=== PATIENT | female | born 1950 | race Two or more races ===

== ENCOUNTER 2022-04-02 19:30 | Inpatient (IN) | payer OTHER ==
[~2022-04-02] VITALS: Ht 170.2 cm; Wt 149.0 kg
[2022-04-02 22:12] LABS: Eosinophils # (auto) 0.3 10 ^3/uL (0-0.8); Lymphocytes # (auto) 1.5 10 ^3/uL (0.4-5.4); Lymphocytes % (auto) 14.8 % (10.0-50.0); Mean Corpuscular Hgb Conc. 30.3 g/dL (32.0-36.0); Monocytes # (auto) 0.9 10 ^3/uL (0-1.3); Nucleated Red Blood Cells % 0.1 %; Red Blood Cells 3.22 10^6/uL (4.0-5.20)
[2022-04-02 22:14] LABS: Basophils # (auto) 0 10 ^3/uL (0-0.2); Basophils % (auto) 0.5 % (0.0-2.0); Eosinophils % (auto) 3.2 % (0.0-7.0); Hematocrit 22.5 % (36.0-46.0); Mean Corpuscular Hemoglobin 21.2 pg (28.0-32.0); Mean Corpuscular Volume 69.8 fL (80.0-100.0); Monocytes % (auto) 9.5 % (0.0-12.0); Neutrophils # (auto) 7.2 10 ^3/uL (1.6-8.6); Red Cell Distribution Width 20.2 % (11.8-14.3); White Blood Cell 9.9 10^3/uL (4.4-10.8)
[2022-04-02 22:15] LABS: Albumin 2.7 g/dL (3.4-5.0); BUN/Creatinine Ratio 27.9; Potassium 4.7 mmol/L (3.5-5.1)
[2022-04-02 22:22] LABS: Bilirubin, Total 0.5 mg/dL (0.2-1.0); Total Protein 6.7 g/dL (6.4-8.2)
[2022-04-02 22:33] LABS: Hemoglobin 6.8 g/dL (12.2-16.2)
[2022-04-02] MEDS ORDERED: IOHEXOL 300 MG/ML 100ML BOTTLE IJ ONE (22:42)
[2022-04-03] VITALS (8 sets, daily range): BP systolic 101–121; BP diastolic 39–70
[2022-04-03 01:20] LABS: Urine Bacteria MANY /hpf (None Seen); Urine Blood Negative /uL (Negative); Urine Mucus FEW (None Seen); Urine Specific Gravity 1.026 (1.001-1.035); Urine WBC 7 /hpf (0 - 5); Urine WBC Clumps PRESENT /hpf (None Seen)
[2022-04-03] MEDS ORDERED: ONDANSETRON HCL 4 MG/2 ML VIAL IV PRN (05:45)
[2022-04-03] MEDS ORDERED: NITROGLYCERIN 0.4 MG SL TAB SL PRN (05:45)
[2022-04-03] MEDS ORDERED: DEXTROSE (50%) 50ML SYRG IV PRN (05:45)
[2022-04-03] MEDS ORDERED: ACETAMINOPHEN 325 MG TAB PO PRN (05:45)
[2022-04-03] MEDS ORDERED: MORPHINE SULFATE INJ 2 MG/ml SYRG IV PRN (05:45)
[2022-04-03] MEDS: FUROSEMIDE 40 MG TAB PO SCH ×2 (06:17→17:23)
[2022-04-03] MEDS: InsuLIN REG 1unit/0.01ml Soln (100units/ml) SC SCH ×4 (07:00→22:00)
[2022-04-03] MEDS: ACCU-CHEK COMFORT CURVE STRIP VI SCH ×4 (07:07→22:01)
[2022-04-03] MEDS: cefTRIAXone 1GM/50ML D5W 50 ML IV SCH (09:13)
[2022-04-03] MEDS ORDERED: AZITHROMYCIN 500MG/ 250ML 250 ML IV SCH (10:00)
[2022-04-03] MEDS: CARVEDILOL 3.125 MG TAB PO SCH ×2 (10:00→22:13)
[2022-04-03] MEDS: LOSARTAN POTASSIUM 25 MG TAB PO SCH (10:00)
[2022-04-03] MEDS: PANTOPRAZOLE 40 MG TAB PO SCH (10:45)
[2022-04-03 17:14] LABS: Basophils # (auto) 0 10 ^3/uL (0-0.2); Eosinophils # (auto) 0.2 10 ^3/uL (0-0.8); Eosinophils % (auto) 2.6 % (0.0-7.0); Monocytes # (auto) 0.8 10 ^3/uL (0-1.3); Neutrophils # (auto) 5.8 10 ^3/uL (1.6-8.6); White Blood Cell 7.9 10^3/uL (4.4-10.8)
[2022-04-03 17:16] LABS: Basophils % (auto) 0.6 % (0.0-2.0); Hematocrit 24.5 % (36.0-46.0); Hemoglobin 7.3 g/dL (12.2-16.2); Lymphocytes % (auto) 12.9 % (10.0-50.0); Mean Corpuscular Hemoglobin 21.3 pg (28.0-32.0); Mean Corpuscular Hgb Conc. 29.8 g/dL (32.0-36.0); Mean Corpuscular Volume 71.6 fL (80.0-100.0); Monocytes % (auto) 10.4 % (0.0-12.0); Neutrophils % (auto) 73.5 % (37.0-80.0); Red Blood Cells 3.42 10^6/uL (4.0-5.20)
[2022-04-03 17:18] LABS: Red Cell Distribution Width 20.8 % (11.8-14.3)
[2022-04-04 05:00] VITALS: BP 105/48
[2022-04-04] MEDS: ACCU-CHEK COMFORT CURVE STRIP VI SCH ×2 (05:50→11:49)
[2022-04-04] MEDS: FUROSEMIDE 40 MG TAB PO SCH (05:51)
[2022-04-04] MEDS: InsuLIN REG 1unit/0.01ml Soln (100units/ml) SC SCH ×2 (05:58→11:30)
[2022-04-04 06:58] LABS: Lymphocytes # (auto) 0.9 10 ^3/uL (0.4-5.4)
[2022-04-04 07:02] LABS: Basophils # (auto) 0 10 ^3/uL (0-0.2); Basophils % (auto) 0.6 % (0.0-2.0); Eosinophils # (auto) 0.4 10 ^3/uL (0-0.8); Hematocrit 24.5 % (36.0-46.0); Hemoglobin 7.4 g/dL (12.2-16.2); Lymphocytes % (auto) 12.3 % (10.0-50.0); Mean Corpuscular Hemoglobin 21.6 pg (28.0-32.0); Mean Corpuscular Hgb Conc. 30.1 g/dL (32.0-36.0); Mean Corpuscular Volume 71.9 fL (80.0-100.0); Monocytes # (auto) 0.7 10 ^3/uL (0-1.3); Neutrophils # (auto) 5.2 10 ^3/uL (1.6-8.6); Neutrophils % (auto) 72.1 % (37.0-80.0); White Blood Cell 7.2 10^3/uL (4.4-10.8)
[2022-04-04 07:03] LABS: Red Cell Distribution Width 20.5 % (11.8-14.3)
[2022-04-04 07:13] LABS: Albumin 2.5 g/dL (3.4-5.0); Calcium 9.2 mg/dL (8.5-10.1); Potassium 4.1 mmol/L (3.5-5.1)
[2022-04-04 07:16] LABS: BUN/Creatinine Ratio 25.6; Bilirubin, Total 0.4 mg/dL (0.2-1.0); Total Protein 6.3 g/dL (6.4-8.2)
[2022-04-04 09:00] VITALS: BP 105/45
[2022-04-04] MEDS: LOSARTAN POTASSIUM 25 MG TAB PO SCH (10:00)
[2022-04-04] MEDS: cefTRIAXone 1GM/50ML D5W 50 ML IV SCH (10:32)
[2022-04-04] MEDS: CARVEDILOL 3.125 MG TAB PO SCH (10:35)
[2022-04-04] MEDS: PANTOPRAZOLE 40 MG TAB PO SCH (10:36)
[2022-04-04 13:00] VITALS: BP 102/41
[2022-04-04] MEDS ORDERED: PANT40T PO (13:07)
[2022-04-04] MEDS ORDERED: LEVO750T8 PO (13:07)
[2022-04-04 16:00] VITALS: BP 114/54
[2022-04-04 17:00] VITALS: BP 102/40
== END 2022-04-04 17:15 | disposition home or self-care (01) | DRG 811 ==
LOC: EDBD 19:30 → ER 19:30 → TELE 04-03 05:40 → TELE-WESTW 04-03 13:04
PROVIDERS: ADMIT Nurse Practitioner; ATTEND Internal Medicine Pulmonary Disease
PROC: 30233N1 Transfusion of Nonautologous Red Blood Cells into Peripheral Vein, Percutaneous Approach (ICD-10-PCS; principal; 2022-04-03)
DX: D62 Acute posthemorrhagic anemia (principal); E43 Unspecified severe protein-calorie malnutrition; J18.9 Pneumonia, unspecified organism; J90 Pleural effusion, not elsewhere classified; N39.0 Urinary tract infection, site not specified; J44.0 Chronic obstructive pulmonary disease with (acute) lower respiratory infection; J98.11 Atelectasis; Z68.43 Body mass index [BMI] 50.0-59.9, adult; Z20.822 Contact with and (suspected) exposure to COVID-19; K80.20 Calculus of gallbladder without cholecystitis without obstruction; R94.8 Abnormal results of function studies of other organs and systems; E11.9 Type 2 diabetes mellitus without complications; I11.0 Hypertensive heart disease with heart failure; I50.9 Heart failure, unspecified; K76.89 Other specified diseases of liver; N83.202 Unspecified ovarian cyst, left side; E66.01 Morbid (severe) obesity due to excess calories; Z93.1 Gastrostomy status
CPT/HCPCS: 36415; 71045; 74177; 80053; 81001; 82962; 83605; 83690; 83880; 84484; 85025; 86850; 86900; 86901; 86920; 93306; 96365; 96367; G0378; J0696; J1815

== ENCOUNTER 2022-04-13 01:03 | Inpatient (IN) | payer OTHER ==
[~2022-04-13] VITALS: Ht 170.2 cm; Wt 150.9 kg
[2022-04-13] VITALS (12 sets, daily range): BP systolic 122–161; BP diastolic 23–71
[~2022-04-13 01:03] MED LIST: LEVO750T8 PO; PANT40T PO
[2022-04-13] MEDS ORDERED: methylPREDNISolone SOD SUCC 125 MG/2 ML VL IV ONE (01:15)
[2022-04-13 01:36] LABS: Basophils # (auto) 0.1 10 ^3/uL (0-0.2); Basophils % (auto) 0.6 % (0.0-2.0); Eosinophils % (auto) 0.4 % (0.0-7.0); Hemoglobin 7.2 g/dL (12.2-16.2); Lymphocytes # (auto) 0.7 10 ^3/uL (0.4-5.4); Monocytes # (auto) 0.9 10 ^3/uL (0-1.3); Nucleated Red Blood Cells % 0.1 %
[2022-04-13 01:37] LABS: Eosinophils # (auto) 0.1 10 ^3/uL (0-0.8); Hematocrit 24.5 % (36.0-46.0); Lymphocytes % (auto) 5.6 % (10.0-50.0); Mean Corpuscular Hemoglobin 21.1 pg (28.0-32.0); Mean Corpuscular Hgb Conc. 29.3 g/dL (32.0-36.0); Monocytes % (auto) 7.4 % (0.0-12.0); Neutrophils # (auto) 10.7 10 ^3/uL (1.6-8.6); Red Blood Cells 3.41 10^6/uL (4.0-5.20); White Blood Cell 12.5 10^3/uL (4.4-10.8)
[2022-04-13 01:42] LABS: Red Cell Distribution Width 21.2 % (11.8-14.3)
[2022-04-13] MEDS ORDERED: ALBUTEROL SULF 2.5 MG/0.5ML(0.5%) NEB SOLN ONE ×2 (01:57→01:58)
[2022-04-13] MEDS ORDERED: IPRATROPIUM BROM 0.5 MG/2.5ML INH SOL ONE ×2 (01:57→01:58)
[2022-04-13] MEDS ORDERED: FUROSEMIDE 100 MG/10ML VIAL IV ONE (02:00)
[2022-04-13 02:22] LABS: Albumin 2.3 g/dL (3.4-5.0); Calcium 8.9 mg/dL (8.5-10.1); Potassium 4.6 mmol/L (3.5-5.1)
[2022-04-13 02:25] LABS: Bilirubin, Total 0.4 mg/dL (0.2-1.0); Total Protein 6.9 g/dL (6.4-8.2)
[2022-04-13 02:30] LABS: BUN/Creatinine Ratio 26.7
[2022-04-13] MEDS ORDERED: PANTOPRAZOLE 40 MG/10 ML VIAL INJ IV ONE (03:30)
[2022-04-13] MEDS ORDERED: FUROSEMIDE 20 MG/2 ML VIAL IV ONE (09:45)
[2022-04-13] MEDS ORDERED: IPRATROPIUM BROM 0.5 MG/2.5ML INH SOL NEB PRN (10:15)
[2022-04-13] MEDS ORDERED: AZITHROMYCIN 500MG/ 250ML 250 ML IV ONE (10:15)
[2022-04-13] MEDS ORDERED: cefTRIAXone 1GM/50ML D5W 50 ML IV ONE (10:15)
[2022-04-13] MEDS ORDERED: NITROGLYCERIN 0.4 MG SL TAB SL PRN (10:15)
[2022-04-13] MEDS ORDERED: MORPHINE SULFATE INJ 2 MG/ml SYRG IV PRN (10:15)
[2022-04-13] MEDS ORDERED: ALBUTEROL SULF 2.5 MG/0.5ML(0.5%) NEB SOLN NEB PRN (10:15)
[2022-04-13] MEDS ORDERED: metroNIDAZOLE 500MG/100ML 100 ML IV ONE (10:30)
[2022-04-13 10:57] LABS: Cholesterol 120 mg/dL (< 200)
[2022-04-13 11:00] LABS: HDL Cholesterol 47 mg/dL (40-59); LDL Cholesterol 74 mg/dL (< 100); Triglycerides 65 mg/dL (< 150)
[2022-04-13] MEDS ORDERED: hydrALAZINE HCL 20 MG/ML VL IV PRN (12:15)
[2022-04-13] MEDS: ALBUTEROL SULF 2.5 MG/0.5ML(0.5%) NEB SOLN NEB SCH ×2 (12:32→19:12)
[2022-04-13] MEDS: IPRATROPIUM BROM 0.5 MG/2.5ML INH SOL NEB SCH ×2 (12:32→19:12)
[2022-04-13] MEDS ORDERED: metroNIDAZOLE 500MG/100ML 100 ML IV SCH (14:00)
[2022-04-13] MEDS: methylPREDNISolone SOD SUCC 40 MG/ML VL IV SCH ×2 (14:09→22:12)
[2022-04-13 18:26] LABS: Hematocrit 27.8 % (36.0-46.0); Hemoglobin 8.6 g/dL (12.2-16.2)
[2022-04-13] MEDS: metroNIDAZOLE 500MG/100ML 100 ML IV SCH (19:01)
[2022-04-13] MEDS: PANTOPRAZOLE 40 MG/10 ML VIAL INJ IV SCH (22:11)
[2022-04-13] MEDS: NYSTATIN TOPICAL POWDER 15GM TOP SCH (22:12)
[2022-04-14] MEDS: metroNIDAZOLE 500MG/100ML 100 ML IV SCH ×3 (03:05→18:25)
[2022-04-14 04:12] LABS: Basophils # (auto) 0 10 ^3/uL (0-0.2); Basophils % (auto) 0.1 % (0.0-2.0); Eosinophils # (auto) 0 10 ^3/uL (0-0.8); Nucleated Red Blood Cells % 0.1 %; Red Blood Cells 3.79 10^6/uL (4.0-5.20)
[2022-04-14 04:16] LABS: Eosinophils % (auto) 0.1 % (0.0-7.0); Hematocrit 27.2 % (36.0-46.0); Hemoglobin 8.4 g/dL (12.2-16.2); Lymphocytes # (auto) 0.5 10 ^3/uL (0.4-5.4); Lymphocytes % (auto) 6.4 % (10.0-50.0); Mean Corpuscular Hemoglobin 22.3 pg (28.0-32.0); Mean Corpuscular Hgb Conc. 31.1 g/dL (32.0-36.0); Mean Corpuscular Volume 71.7 fL (80.0-100.0); Monocytes # (auto) 0.5 10 ^3/uL (0-1.3); Monocytes % (auto) 6.1 % (0.0-12.0); Neutrophils # (auto) 6.7 10 ^3/uL (1.6-8.6); Neutrophils % (auto) 87.3 % (37.0-80.0); White Blood Cell 7.7 10^3/uL (4.4-10.8)
[2022-04-14 04:18] LABS: Potassium 3.9 mmol/L (3.5-5.1)
[2022-04-14 04:29] LABS: Albumin 2.4 g/dL (3.4-5.0); BUN/Creatinine Ratio 35.5; Bilirubin, Total 0.5 mg/dL (0.2-1.0); Total Protein 6.3 g/dL (6.4-8.2)
[2022-04-14 04:39] VITALS: BP 124/57
[2022-04-14 05:22] LABS: Red Cell Distribution Width 23.2 % (11.8-14.3)
[2022-04-14] MEDS: methylPREDNISolone SOD SUCC 40 MG/ML VL IV SCH ×3 (05:58→21:04)
[2022-04-14] MEDS: IPRATROPIUM BROM 0.5 MG/2.5ML INH SOL NEB SCH ×3 (06:12→22:57)
[2022-04-14] MEDS: ALBUTEROL SULF 2.5 MG/0.5ML(0.5%) NEB SOLN NEB SCH ×3 (06:12→22:57)
[2022-04-14 08:00] VITALS: BP 147/71
[2022-04-14 08:12] VITALS: BP 105/39
[2022-04-14] MEDS: cefTRIAXone 1GM/50ML D5W 50 ML IV SCH (08:41)
[2022-04-14] MEDS: NYSTATIN TOPICAL POWDER 15GM TOP SCH ×2 (09:52→21:04)
[2022-04-14] MEDS: PANTOPRAZOLE 40 MG/10 ML VIAL INJ IV SCH ×2 (09:52→21:04)
[2022-04-14] MEDS ORDERED: AZITHROMYCIN 500MG/ 250ML 250 ML IV SCH (10:00)
[2022-04-14] MEDS ORDERED: MORPHINE SULFATE INJ 2 MG/ml SYRG IV PRN (11:30)
[2022-04-14] MEDS ORDERED: HYDROcodone-ACET 5/325MG TAB PO PRN (11:30)
[2022-04-14] MEDS ORDERED: FLUCONAZOLE 200MG/100ML 100 ML IV ONE (11:30)
[2022-04-14] MEDS ORDERED: DEXTROSE (50%) 50ML SYRG IV PRN (11:30)
[2022-04-14] MEDS ORDERED: FUROSEMIDE 40 MG TAB PO ONE (11:30)
[2022-04-14 11:51] VITALS: BP 121/68
[2022-04-14] MEDS: ACCU-CHEK COMFORT CURVE STRIP VI SCH ×3 (12:04→23:21)
[2022-04-14 12:08] LABS: Urine Bacteria NONE SEEN /hpf (None Seen); Urine Blood 3+ /uL (Negative); Urine Mucus FEW (None Seen); Urine Specific Gravity 1.016 (1.001-1.035); Urine WBC 10 /hpf (0 - 5)
[2022-04-14] MEDS: InsuLIN REG 1unit/0.01ml Soln (100units/ml) SC SCH ×3 (12:08→23:23)
[2022-04-14 12:11] LABS: Protein, Urine 53.4 mg/dL (0.0-11.9)
[2022-04-14 17:00] VITALS: BP 132/70
[2022-04-14 22:00] VITALS: BP 138/68
[2022-04-15] MEDS: metroNIDAZOLE 500MG/100ML 100 ML IV SCH ×3 (03:03→18:14)
[2022-04-15 05:00] VITALS: BP 148/72
[2022-04-15] MEDS: ACCU-CHEK COMFORT CURVE STRIP VI SCH ×3 (05:40→17:53)
[2022-04-15] MEDS: InsuLIN REG 1unit/0.01ml Soln (100units/ml) SC SCH ×3 (05:40→18:03)
[2022-04-15] MEDS: methylPREDNISolone SOD SUCC 40 MG/ML VL IV SCH ×3 (05:43→21:29)
[2022-04-15] MEDS: IPRATROPIUM BROM 0.5 MG/2.5ML INH SOL NEB SCH ×3 (07:10→18:39)
[2022-04-15] MEDS: ALBUTEROL SULF 2.5 MG/0.5ML(0.5%) NEB SOLN NEB SCH ×3 (07:10→18:39)
[2022-04-15 07:50] LABS: Basophils # (auto) 0 10 ^3/uL (0-0.2); Basophils % (auto) 0.2 % (0.0-2.0); Eosinophils # (auto) 0 10 ^3/uL (0-0.8); Hemoglobin 9.2 g/dL (12.2-16.2); Lymphocytes # (auto) 0.4 10 ^3/uL (0.4-5.4); Lymphocytes % (auto) 5.3 % (10.0-50.0); Monocytes # (auto) 0.5 10 ^3/uL (0-1.3); Nucleated Red Blood Cells % 0.1 %
[2022-04-15 07:52] LABS: Eosinophils % (auto) 0.1 % (0.0-7.0); Hematocrit 30.6 % (36.0-46.0); Mean Corpuscular Volume 73.4 fL (80.0-100.0); Monocytes % (auto) 6.3 % (0.0-12.0); Neutrophils # (auto) 6.9 10 ^3/uL (1.6-8.6); Neutrophils % (auto) 88.1 % (37.0-80.0); Red Blood Cells 4.17 10^6/uL (4.0-5.20); White Blood Cell 7.8 10^3/uL (4.4-10.8)
[2022-04-15 07:57] LABS: Anion Gap 4 (5-15); BUN/Creatinine Ratio 39.3; Blood Urea Nitrogen 42 mg/dL (7-18); Chloride 94 mmol/L (98-107); GFR African American 65 mL/min; GFR Non-African American 53 mL/min; Glucose 147 mg/dL (74-106); Phosphorus 4.1 mg/dL (2.5-4.90); Potassium 3.9 mmol/L (3.5-5.1); Sodium 139 mmol/L (136-145)
[2022-04-15 08:00] VITALS: BP 121/68
[2022-04-15 08:01] LABS: Red Cell Distribution Width 23.7 % (11.8-14.3)
[2022-04-15 08:20] VITALS: BP 145/69
[2022-04-15 08:26] LABS: Carbon Dioxide 41 mmol/L (21-32); Uric Acid > 15.0 mg/dL (2.6-6.0)
[2022-04-15] MEDS: PANTOPRAZOLE 40 MG/10 ML VIAL INJ IV SCH ×2 (09:44→21:29)
[2022-04-15] MEDS: cefTRIAXone 1GM/50ML D5W 50 ML IV SCH (09:44)
[2022-04-15] MEDS: NYSTATIN TOPICAL POWDER 15GM TOP SCH ×2 (09:45→21:29)
[2022-04-15] MEDS: FLUCONAZOLE 200MG/100ML 100 ML IV SCH (09:45)
[2022-04-15] MEDS: FUROSEMIDE 40 MG TAB PO SCH (09:45)
[2022-04-15 12:20] VITALS: BP 114/62
[2022-04-15 16:20] VITALS: BP 128/52
[2022-04-15 18:33] LABS: Hemoglobin 8.8 g/dL (12.2-16.2)
[2022-04-15 18:34] LABS: Hematocrit 28.3 % (36.0-46.0)
[2022-04-15 22:00] VITALS: BP 125/48
[2022-04-16] MEDS: metroNIDAZOLE 500MG/100ML 100 ML IV SCH ×3 (02:15→20:53)
[2022-04-16 05:00] VITALS: BP 139/76
[2022-04-16] MEDS: ACCU-CHEK COMFORT CURVE STRIP VI SCH ×5 (05:26→23:11)
[2022-04-16] MEDS: InsuLIN REG 1unit/0.01ml Soln (100units/ml) SC SCH ×5 (05:26→23:25)
[2022-04-16] MEDS: methylPREDNISolone SOD SUCC 40 MG/ML VL IV SCH ×3 (05:27→21:16)
[2022-04-16] MEDS: IPRATROPIUM BROM 0.5 MG/2.5ML INH SOL NEB SCH ×3 (06:59→19:11)
[2022-04-16] MEDS: ALBUTEROL SULF 2.5 MG/0.5ML(0.5%) NEB SOLN NEB SCH ×3 (06:59→19:11)
[2022-04-16] MEDS: cefTRIAXone 1GM/50ML D5W 50 ML IV SCH (07:56)
[2022-04-16] MEDS: PANTOPRAZOLE 40 MG/10 ML VIAL INJ IV SCH ×2 (07:56→21:16)
[2022-04-16 09:00] VITALS: BP 118/88
[2022-04-16] MEDS ORDERED: FLUMAZENIL 0.1 MG/ML INJ 10ML MDV IV ONE (09:38)
[2022-04-16] MEDS ORDERED: NALOXONE HCL 0.4 MG/ML VIAL ONE (09:38)
[2022-04-16] MEDS ORDERED: MIDAZOLAM HCL 5 MG/ML-1ML VIAL ONE (09:39)
[2022-04-16] MEDS ORDERED: diphenhdrAMINE HCL 50 MG/1 ML VL ONE (09:39)
[2022-04-16] MEDS ORDERED: SODIUM CHLORIDE LOCK 0 ML ONE (09:39)
[2022-04-16] MEDS ORDERED: LIDOCAINE VISCOUS 2% 15ML UD ONE (09:39)
[2022-04-16] MEDS ORDERED: fentaNYL CITRATE 100 MCG/2 ML VL ONE (09:39)
[2022-04-16 09:47] LABS: Eosinophils # (auto) 0 10 ^3/uL (0-0.8); Lymphocytes # (auto) 0.3 10 ^3/uL (0.4-5.4); Neutrophils # (auto) 5.5 10 ^3/uL (1.6-8.6)
[2022-04-16 09:49] LABS: Basophils # (auto) 0.1 10 ^3/uL (0-0.2); Basophils % (auto) 0.9 % (0.0-2.0); Hematocrit 30.3 % (36.0-46.0); Hemoglobin 9.2 g/dL (12.2-16.2); Lymphocytes % (auto) 4.1 % (10.0-50.0); Mean Corpuscular Hgb Conc. 30.4 g/dL (32.0-36.0); Mean Corpuscular Volume 72.5 fL (80.0-100.0); Monocytes # (auto) 0.4 10 ^3/uL (0-1.3); Monocytes % (auto) 6.4 % (0.0-12.0); Neutrophils % (auto) 88.6 % (37.0-80.0); Nucleated Red Blood Cells % 0.1 %; Red Blood Cells 4.18 10^6/uL (4.0-5.20); White Blood Cell 6.2 10^3/uL (4.4-10.8)
[2022-04-16 09:52] LABS: Red Cell Distribution Width 23.2 % (11.8-14.3)
[2022-04-16 09:58] LABS: Albumin 2.5 g/dL (3.4-5.0); Calcium 9.2 mg/dL (8.5-10.1); Potassium 4.1 mmol/L (3.5-5.1)
[2022-04-16 10:00] LABS: INR 1.17 (0.9-1.15); Partial Thromboplastin Time 30.2 sec (24.6-33.4)
[2022-04-16 10:02] LABS: BUN/Creatinine Ratio 42.2; Bilirubin, Total 0.4 mg/dL (0.2-1.0); Total Protein 6.1 g/dL (6.4-8.2)
[2022-04-16] MEDS: FLUCONAZOLE 200MG/100ML 100 ML IV SCH (10:33)
[2022-04-16] MEDS: FUROSEMIDE 40 MG TAB PO SCH (10:34)
[2022-04-16] MEDS: NYSTATIN TOPICAL POWDER 15GM TOP SCH ×2 (10:42→21:17)
[2022-04-16 13:00] VITALS: BP 132/51
[2022-04-16] MEDS ORDERED: GLYCOPYRROLATE 0.2 MG/ML 1ML VIAL ONE (17:39)
[2022-04-16] MEDS ORDERED: MIDAZOLAM HCL 2MG/2ML 2ml VIAL (1mg/ml) ONE (17:39)
[2022-04-16] MEDS ORDERED: PROPOFOL 10 MG/ML 20 ML IV ONE (17:39)
[2022-04-16 22:00] VITALS: BP 133/58
[2022-04-17] MEDS: metroNIDAZOLE 500MG/100ML 100 ML IV SCH ×2 (03:53→11:19)
[2022-04-17 05:00] VITALS: BP 139/71
[2022-04-17] MEDS: ACCU-CHEK COMFORT CURVE STRIP VI SCH ×2 (05:21→11:40)
[2022-04-17 05:22] LABS: Basophils # (auto) 0 10 ^3/uL (0-0.2); Basophils % (auto) 0.5 % (0.0-2.0); Eosinophils # (auto) 0 10 ^3/uL (0-0.8); Hematocrit 30.9 % (36.0-46.0); Hemoglobin 9.4 g/dL (12.2-16.2); Lymphocytes # (auto) 0.2 10 ^3/uL (0.4-5.4); Lymphocytes % (auto) 3.6 % (10.0-50.0); Mean Corpuscular Hemoglobin 21.9 pg (28.0-32.0); Mean Corpuscular Hgb Conc. 30.6 g/dL (32.0-36.0); Mean Corpuscular Volume 71.7 fL (80.0-100.0); Monocytes # (auto) 0.5 10 ^3/uL (0-1.3); Neutrophils # (auto) 5.1 10 ^3/uL (1.6-8.6); Neutrophils % (auto) 87.9 % (37.0-80.0); Red Blood Cells 4.31 10^6/uL (4.0-5.20); White Blood Cell 5.8 10^3/uL (4.4-10.8)
[2022-04-17 05:24] LABS: Red Cell Distribution Width 23.2 % (11.8-14.3)
[2022-04-17] MEDS: methylPREDNISolone SOD SUCC 40 MG/ML VL IV SCH ×2 (05:26→14:17)
[2022-04-17] MEDS: InsuLIN REG 1unit/0.01ml Soln (100units/ml) SC SCH ×2 (05:31→11:42)
[2022-04-17 05:32] LABS: Potassium 3.6 mmol/L (3.5-5.1)
[2022-04-17 05:36] LABS: BUN/Creatinine Ratio 43.8; Calcium 8.9 mg/dL (8.5-10.1)
[2022-04-17] MEDS: IPRATROPIUM BROM 0.5 MG/2.5ML INH SOL NEB SCH ×2 (06:31→11:49)
[2022-04-17] MEDS: ALBUTEROL SULF 2.5 MG/0.5ML(0.5%) NEB SOLN NEB SCH ×2 (06:31→11:49)
[2022-04-17] MEDS: cefTRIAXone 1GM/50ML D5W 50 ML IV SCH (08:32)
[2022-04-17 09:11] VITALS: BP 136/52
[2022-04-17] MEDS: PANTOPRAZOLE 40 MG/10 ML VIAL INJ IV SCH (09:36)
[2022-04-17] MEDS: NYSTATIN TOPICAL POWDER 15GM TOP SCH (09:37)
[2022-04-17] MEDS: FUROSEMIDE 40 MG TAB PO SCH (09:37)
[2022-04-17] MEDS ORDERED: NYS15PW TOP (10:14)
[2022-04-17] MEDS ORDERED: SUCR1SUS10 PO (10:14)
[2022-04-17] MEDS ORDERED: FURO40TA4 PO (10:14)
[2022-04-17] MEDS ORDERED: PANT40TA2 PO (10:14)
[2022-04-17] MEDS ORDERED: PRED20TA2 PO (10:15)
[2022-04-17] MEDS ORDERED: FLUC100T34 PO (11:55)
[2022-04-17 14:56] VITALS: BP 138/62
[2022-04-17 16:52] VITALS: BP 127/71
[2022-04-17 16:55] VITALS: BP 137/66
== END 2022-04-17 17:10 | disposition home health service (06) | DRG 193 ==
LOC: EDBD 01:03 → ER 01:03 → TELE 10:24 → TELE-EAST 14:05
PROVIDERS: ADMIT Registered Nurse; ATTEND Internal Medicine Pulmonary Disease
PROC: 5A09357 Assistance with Respiratory Ventilation, Less than 24 Consecutive Hours, Continuous Positive Airway Pressure (ICD-10-PCS; principal; 2022-04-13)
PROC: 30233N1 Transfusion of Nonautologous Red Blood Cells into Peripheral Vein, Percutaneous Approach (ICD-10-PCS; 2022-04-13)
PROC: 5A09357 Assistance with Respiratory Ventilation, Less than 24 Consecutive Hours, Continuous Positive Airway Pressure (ICD-10-PCS; 2022-04-14)
PROC: 5A09357 Assistance with Respiratory Ventilation, Less than 24 Consecutive Hours, Continuous Positive Airway Pressure (ICD-10-PCS; 2022-04-15)
PROC: 5A09357 Assistance with Respiratory Ventilation, Less than 24 Consecutive Hours, Continuous Positive Airway Pressure (ICD-10-PCS; 2022-04-16)
PROC: 0DB98ZX Excision of Duodenum, Via Natural or Artificial Opening Endoscopic, Diagnostic (ICD-10-PCS; 2022-04-16)
PROC: 0DB68ZX Excision of Stomach, Via Natural or Artificial Opening Endoscopic, Diagnostic (ICD-10-PCS; 2022-04-16)
PROC: 5A09357 Assistance with Respiratory Ventilation, Less than 24 Consecutive Hours, Continuous Positive Airway Pressure (ICD-10-PCS; 2022-04-17)
DX: J18.9 Pneumonia, unspecified organism (principal); I50.31 Acute diastolic (congestive) heart failure; I50.33 Acute on chronic diastolic (congestive) heart failure; J96.21 Acute and chronic respiratory failure with hypoxia; N17.0 Acute kidney failure with tubular necrosis; J96.22 Acute and chronic respiratory failure with hypercapnia; K29.71 Gastritis, unspecified, with bleeding; K22.11 Ulcer of esophagus with bleeding; E87.4 Mixed disorder of acid-base balance; I13.0 Hypertensive heart and chronic kidney disease with heart failure and stage 1 through stage 4 chronic kidney disease, or unspecified chronic kidney disease; J44.0 Chronic obstructive pulmonary disease with (acute) lower respiratory infection; J44.1 Chronic obstructive pulmonary disease with (acute) exacerbation; N39.0 Urinary tract infection, site not specified; D62 Acute posthemorrhagic anemia; Z68.43 Body mass index [BMI] 50.0-59.9, adult; Z20.822 Contact with and (suspected) exposure to COVID-19; E11.22 Type 2 diabetes mellitus with diabetic chronic kidney disease; E66.01 Morbid (severe) obesity due to excess calories; E88.09 Other disorders of plasma-protein metabolism, not elsewhere classified; G47.33 Obstructive sleep apnea (adult) (pediatric); K80.20 Calculus of gallbladder without cholecystitis without obstruction; I48.91 Unspecified atrial fibrillation; N18.32 Chronic kidney disease, stage 3b; K31.9 Disease of stomach and duodenum, unspecified; Z79.01 Long term (current) use of anticoagulants
CPT/HCPCS: 36415; 36600; 71045; 80048; 80053; 80061; 81001; 82270; 82570; 82805; 82962; 83036; 83880; 84100; 84156; 84300; 84443; 84484; 84550; 85014; 85018; 85025; 85610; 85730; 86850; 86900; 86901; 86920; 87040; 87081; 87086; 93005; 94640; 94660; 96365; 96367; 96375; 99291; C9113; G0378; J0696; J1450; J1815; J2250; J2704; J3490